=== PATIENT | male | born 1950 | race Caucasian/White ===

== ENCOUNTER 2016-11-26 11:23 | Observation (INO) ==
--- NOTE | 2016-11-26 11:55 | EKG Report ---
Please refer to the EKG image. Final interpretation is pending.
[2016-11-26] MEDS ORDERED: NITROGLYCERIN SL 0.4 MG TABLET SL ONE (12:20)
[2016-11-26] MEDS: NITROGLYCERIN SL 0.4 MG TABLET SL PRN ×2 (12:21→15:44)
[2016-11-26 12:25] LABS: Basophils % 0.6 % (0.0-0.8); Eosinophils # 0.1 10*3/uL (0.0-0.87); Eosinophils % 1.3 % (0.00-10.9); Hematocrit 37.4 VOL% (42.0-52.0); Hemoglobin 11.8 GM/DL (14.0-18.0); Immature Granulocytes % 0.2 %; Immature Granulocytes Absolute 0.01 #; Lymphocytes # 1.1 10*3/uL (1.4-4.0); Lymphocytes % 19.9 % (21.2-54.2); Mean Corpuscular HGB Conc 31.6 GM/DL (32-36); Mean Corpuscular Hemoglobin 27 PG (27-34); Mean Corpuscular Volume 86.2 FL (87-102); Mean Platelet Volume 11.2 FL (9.6-12.0); Monocytes # 0.5 10*3/uL (0.11-0.8); Monocytes % 10.1 % (1.7-12.7); Neutrophils # 3.6 10*3/uL (1.4-7.4); Neutrophils % 67.9 % (38.7-73.9); Platelet Count 142 10*3/uL (130-400); Red Blood Count 4.34 10*6/uL (3.8-5.5); Red Cell Distribution Width 14.6 % (9.3-17.3); White Blood Count 5.3 10*3/uL (4.5-13.71)
--- NOTE | 2016-11-26 12:32 | XRay Report ---
History is chest pain Comparison 07/20/2016 Mediastinal contours unchanged. Clips in the lower neck again seen No congestive failure or confluent infiltrate seen Right diaphragmatic eventration again noted Chronic changes of the shoulders again seen Impression: Stable portable chest PROCEDURE INTERPRETED AT [facility] DEPARTMENT OF RADIOLOGY Final Report Signed by: Dr. Veronique Dueñas
[2016-11-26 12:35] LABS: Partial Thromboplastin Time 37.9 SECS (0-40)
[2016-11-26 12:40] LABS: INR 2.9
[2016-11-26 12:41] LABS: PT Patient Result 33.2 SECS
[2016-11-26 12:58] LABS: Albumin 3.7 G/DL (3.4-5.0); Bilirubin,Total 1.1 MG/DL (0.2-1.0); Osmolality,Calculated 296.7 MOS/KG (273-304); Potassium 4.4 MMOL/L (3.5-5.1); Total Protein 6.3 G/DL (6.4-8.3)
--- NOTE | 2016-11-26 14:53 | Emergency Department Note ---
ISergio Kasabria, am scribing for, and in the presence of, Adriano Espinoza Jr., MD 12:04. Olga Haque Marvin Jr., MD, personally performed the services described in this documentation, ascribed by Omi Hill in my presence, and it is both accurate and complete . Arrival - Arrival Chief Complaint: Chest Pain Stated Complaint: chest pain ED Nursing Triage Note: C/O CHEST PAIN WITH ONSET 1.5 HRS AWNING FINISHER, DENIES SOB/NAUSEA /VOMITING. PT STATES HE TOOK 2 NITROS AWNING FINISHER WITH RELIEF Mode of Arrival: Ambulatory Limitations: No Limitations Source: Patient Time Seen by Provider: 11/26/16 11:51 - History of Present Illness HPI Narrative: This is a 66 y/o white male presenting to the ED with c/o left sided chest tenderness that onset 1.5 hours ago. Pt has had chest pain before and he states his breathing is labored at times. He has 6 stents placed near his heart by Dr. Solis several years ago. He describes his pain at 6/10. He is currently taking Warfran and Plavix. Pt has a PMH of diabetes and HTN. Pt denies fever, chills, nausea, vomiting, diarrhea, abdominal pain, back pain, diaphoresis, and dysuria. Pt took 2 nitros with some relief. Onset (ago): hour(s) (1.5) Consistency: constant Severity: moderate Allergies/Adverse Reactions: Allergies Allergy/AdvReac Type Severity Reaction Status Date / Time pentazocine AdvReac Nausea Verified 07/20/16 10:30 Home Medications: Home Medications Medication Instructions Recorded Confirmed Type Allopurinol 200 mg PO BEDTIME 07/20/16 11/26/16 History Atorvastatin Calcium 20 mg PO QAM 07/20/16 11/26/16 History Bimatoprost 0.01% Oph Soln 1 drop BOTH EYES BEDTIME 07/20/16 11/26/16 History [Lumigan] Clopidogrel [Plavix] 75 mg PO QAM 07/20/16 11/26/16 History Furosemide Tab [Lasix Tab] 120 mg PO QAM 07/20/16 11/26/16 History Furosemide Tab [Lasix Tab] 120 mg PO QAM 07/20/16 11/26/16 History Insulin Lispro [HumaLOG] 7 unit SUBCUT TID W/MEALS 07/20/16 11/26/16 History Isosorbide Dinitrate 20 mg PO BID 07/20/16 11/26/16 History Levothyroxine Tab [Synthroid Tab] 325 mcg PO QAM 07/20/16 11/26/16 History Losartan Potassium [Cozaar] 100 mg PO QAM 07/20/16 11/26/16 History Magnesium Chloride [Mag Delay] 64 mg PO BEDTIME 07/20/16 11/26/16 History Potassium Chloride 20 meq PO BEDTIME 07/20/16 11/26/16 History Pramipexole [Mirapex] 3 mg PO BEDTIME 07/20/16 11/26/16 History Tamsulosin [Flomax] 0.4 mg PO BEDTIME 07/20/16 11/26/16 History Warfarin Sodium 5 mg PO BEDTIME 07/20/16 11/26/16 History Warfarin [Coumadin] 2.5 mg PO KING 07/20/16 11/26/16 History hydroCHLOROthiazide 25 mg PO QAM 07/20/16 11/26/16 History [Hydrochlorothiazide] metOLazone [Metolazone] 20 mg PO QAM 07/20/16 11/26/16 History Calcium (Carb)/Vit D 250-125 2 tablet PO DAILY 11/26/16 11/26/16 History [Oscal 250 + D] Clorazepate [Tranxene] 3.75 mg PO BEDTIME 11/26/16 11/26/16 History Folic Acid/Multivit-Min/Lutein 2 tablet PO DAILY 11/26/16 11/26/16 History [Centrum Silver Chew Tab] Insulin Detemir [Levemir FlexPen] 40 unit SUBCUT BEDTIME 11/26/16 11/26/16 History Levothyroxine Tab [Synthroid Tab] 325 mcg PO QAM 11/26/16 11/26/16 History Melatonin 5 mg PO BEDTIME 11/26/16 11/26/16 History Pantoprazole Tab [Protonix Tab] 40 mg PO QAM 11/26/16 11/26/16 History Review of System - Review of System 12 point system: reviewed and no additional remarkable complaints except as stated - Review of System Constitutional: Absent: chills, fever, weakness Eyes: Absent: vision change Head/Ears/Nose/Throat: Absent: nasal drainage Respiratory: Absent: cough, wheezing Cardiovascular: Present: chest pain (left sided ), dyspnea on exertion Gastrointestinal: Absent: abdominal pain, nausea, vomiting, diarrhea Genitourinary male: Absent: dysuria Musculoskeletal: Absent: arm pain, back pain, lower back pain, leg pain, neck pain Skin: Absent: rash Neurological: Absent: headache, weakness, numbness, confusion, abnormal gait, vertigo Psychiatric: Absent: anxiety Endocrine: Absent: fatigue Hematological/Lymphatic: Absent: easy bleeding Allergic/Immunologic: Absent: facial swelling Medical,Surgical,& Family Hx - Medical History Cardio: History of: Hypertension, [place] (WITH 6 STENTS) Respiratory: History of: Bronchitis Genitourinary: History of: Kidney Stones Musculoskeletal: History of: Back/Neck Problems (l4 l5 fusions, "tailbone surgery") - Surgical History Abdominal Surgeries: Surgical HX of: Cholecystectomy, Gastric Bypass Surgery, EGD - Family History Family History: Reports;: Family Cancer, Family Diabetes, Family Heart Disease, Family Hypertension, Family Stroke - Social History Smoking Status: Former smoker Frequency of Alcohol Use: None Type of Drug Use: None Exam Physical Examination: General: Well-developed well-nourished, no apparent distress. Head: Normocephalic, atraumatic. Eyes: PERRLA, EOMI. Nose: No obvious acute deformities or discharge. Mouth: No obvious acute injury. Neck: Full range of motion without obvious pain. No midline tender to palpation. Lymphatic: no significant lymphadenopathy noted. Lungs: Clear to auscultation bilaterally, normal and equal air movement bilaterally, no obvious rales or wheezing. Heart: regular rate and rhythm, no obvious mummers. Abdomen: Mild tenderness to palpation over the recent surgery site. This seems appropriate and not excessive. Normal active bowel sounds. Skin: No obivous acute lesions noted Musculoskeletal: No gross deformities. Neurological: No focal findings, cranial nerves II through XII grossly normal. Psychiatric: Appropriate mood.. : Deferred Vital Signs: Vital Signs Temperature 98.8 F 11/26/16 11:27 Pulse Rate 66 11/26/16 13:10 Respiratory Rate 16 11/26/16 13:10 Blood Pressure 128/55 11/26/16 13:10 O2 Sat by Pulse Oximetry 100 11/26/16 13:10 Course Course Narrative: Differential diagnosis, ME, just of heart failure, PE - Reevaluation(s) Reevaluation #1: Discussed with Dr. Cazares who accepts this admission for Dr. Solis. Since the patient is on Plavix and Coumadin he says do not had aspirin or Lovenox to the regime. Time: 14:48 Reevaluation #2: Patient also says he has had a lap band that was removed and he had some sort of sleeve surgery last month, this may be part of the issue also the patient still merits admission for further workup. Time: 14:51 Results - Labs CBC & BMP: 11/26/16 12:01 11/26/16 12:01 Lab Results: I have reviewed the patients labs Labs: Laboratory Tests 11/26/16 11/26/16 11/26/16 12:01 12:01 12:01 WBC 5.3 RBC 4.34 Hgb 11.8 L Hct 37.4 L MCV 86.2 L MCH 27 MCHC 31.6 L RDW 14.6 Plt Count 142 MPV 11.2 Neut % (Auto) 67.9 Lymph % (Auto) 19.9 L [place] % (Auto) 10.1 Eos % (Auto) 1.3 Baso % (Auto) 0.6 Neut # (Auto) 3.6 Lymph # (Auto) 1.1 L [place] # (Auto) 0.5 Eos # (Auto) 0.1 Baso # (Auto) 0.0 Immature Gran % 0.2 Nucleated RBC % 0.0 Immature Gran # 0.01 Nucleated RBCs # 0.00 INR 2.9 PT Patient/Control Mix 33.2 D D-Dimer, Quantitative Circ Anticoag PTT 37.9 Sodium 145 Potassium 4.4 Chloride 107 Carbon Dioxide 28 Anion Gap 14.4 BUN 21 H Creatinine 1.20 GFR Calculation 92 BUN/Creatinine Ratio 17.00 Glucose 214 H Calculated Osmolality 296.7 Calcium 9.0 Total Bilirubin 1.10 H AST 20 ALT 23 Alkaline Phosphatase 88 Total Protein 6.3 L Albumin 3.7 Globulin 2.6 Albumin/Globulin Ratio 1.4 11/26/16 12:01 WBC RBC Hgb Hct MCV MCH MCHC RDW Plt Count MPV Neut % (Auto) Lymph % (Auto) [place] % (Auto) Eos % (Auto) Baso % (Auto) Neut # (Auto) Lymph # (Auto) [place] # (Auto) Eos # (Auto) Baso # (Auto) Immature Gran % Nucleated RBC % Immature Gran # Nucleated RBCs # INR PT Patient/Control Mix D-Dimer, Quantitative <= 0.5 Circ Anticoag PTT Sodium Potassium Chloride Carbon Dioxide Anion Gap BUN Creatinine GFR Calculation BUN/Creatinine Ratio Glucose Calculated Osmolality Calcium Total Bilirubin AST ALT Alkaline Phosphatase Total Protein Albumin Globulin Albumin/Globulin Ratio - EKG EKG results: interpreted by ERMD (C EKG, heart rate 77, normal sinus rhythm, no obvious acute ST changes. Interpretation nonspecific EKG without obvious acute changes) - Diagnostic Findings Procedure: Chest x-ray: report reviewed by me (stable portable chest , I personally reviewed this chest x-ray and agree.) Disposition Clinical Impression: Chest pain, Diabetes mellitus, Hypertension, Coronary artery disease, recent lap band removal with sleeve surg Case discussed with: patient, patient's family Disposition: Still a Patient Condition: Stable Time of Disposition: 14:49
[2016-11-26] MEDS ORDERED: MAGNESIUM SULF RIDER 4 GM in PREMIX 1 EACH IV PRN (16:10)
[2016-11-26] MEDS ORDERED: GLUCAGON 1 MG VIAL IM PRN (16:10)
[2016-11-26] MEDS ORDERED: MAGNESIUM SULF RIDER 2 GM in PREMIX 1 EACH IV PRN (16:10)
[2016-11-26] MEDS ORDERED: DEXTROSE 50% 25 GM/50 ML VIAL IV PRN (16:10)
[2016-11-26] MEDS: INSULIN REGULAR 100 UNIT/ML SUBCUT SCH ×2 (17:57→21:01)
[2016-11-26] MEDS ORDERED: WARFARIN 5 MG TABLET PO SCH (21:00)
[2016-11-26] MEDS: NITROGLYCERIN 2% OINT 1 INCH/GM PACK TOP SCH (21:07)
[2016-11-27] MEDS ORDERED: CLOPIDOGREL 75 MG TABLET PO SCH (09:00)
[2016-11-27] MEDS: INSULIN REGULAR 100 UNIT/ML SUBCUT SCH ×2 (10:00→13:30)
[2016-11-27] MEDS: NITROGLYCERIN 2% OINT 1 INCH/GM PACK TOP SCH (10:00)
--- NOTE | 2016-11-27 10:47 | Cardiology History & Physical ---
Assessment and Plan (1) Chest pain Status: Acute Assessment and plan: The patient had some chest pain symptoms, but has no EKG changes, has normal cardiac enzymes, and had cardiac catheterization for the same symptoms as a few months ago. He did not have any interventional disease at that time. At this point, it is unclear whether the symptoms actually represent anything cardiac. Certainly, with his recent lap band, this could be GI in origin. Nevertheless, with negative cardiac enzymes, no EKG changes, and a recent cardiac catheterization showing no interventional disease, I think we can continue to manage him medically. He is clinically stable and wants to go home today which I think is reasonable. I will get him set up for a follow-up with Dr. Solis to see if he has any other recommendations on further workup and management. Current Visit: Yes (2) Coronary artery disease Status: Acute Current Visit: Yes (3) Diabetes mellitus Status: Acute Current Visit: Yes (4) Hypertension Status: Acute Current Visit: Yes (5) Warfarin anticoagulation Status: Chronic Current Visit: No History of Present Illness History of present illness: Mr. Scott is a 66 year old male with a history of coronary artery disease, hypertension, hyperlipidemia, diabetes, hypothyroidism, and obesity. He is normally followed by Dr. Solis. He came in to the hospital after having some chest pain symptoms. This was on the left side of his chest. It was moderate in severity. The symptoms lasted for about an hour to an hour and a half. They improved after getting sublingual nitroglycerin and eventually resolved altogether. There were no specific exacerbating or relieving factors. There were no associated symptoms such as diaphoresis nausea, or vomiting. There is no radiation of the symptoms. He felt mildly short of breath. Symptoms were not pleuritic. He has not had any fever, chills, or cough on the day of admission, although his says that he was "a little congested a few days ago and was treated by his family physician for this with a steroid shot". Since admission to the hospital he's had no further chest pain symptoms. His EKG has not shown any acute changes. His cardiac enzymes have been negative 3 sets. He denies any palpitations, syncope, orthopnea, or PND. At the time I was seeing him he was feeling completely back to normal. Of note, Dr. Solis admitted the patient in July 2016 for similar symptoms. He performed cardiac catheterization at that time which did not reveal any sort of interventional disease. He does have some small vessel/diffuse disease in the PDA distribution, but nothing that was very amenable to percutaneous revascularization. His left ventricular ejection fraction at that time was also normal, estimated at 55-60%. Also of note, the patient had removal of a lap band and placement of a gastric sleeve in October for management of his weight. He had no problems or complications from that procedure. Home Medications Medication Instructions Recorded Confirmed Type Allopurinol 200 mg PO BEDTIME 07/20/16 11/26/16 History Atorvastatin Calcium 20 mg PO QAM 07/20/16 11/26/16 History Bimatoprost 0.01% Oph Soln 1 drop BOTH EYES BEDTIME 07/20/16 11/26/16 History [Lumigan] Clopidogrel [Plavix] 75 mg PO QAM 07/20/16 11/26/16 History Furosemide Tab [Lasix Tab] 80 mg PO TUWETH 07/20/16 11/26/16 History Insulin Lispro [HumaLOG] 7 unit SUBCUT TID W/MEALS 07/20/16 11/26/16 History Isosorbide Dinitrate 20 mg PO BID 07/20/16 11/26/16 History Levothyroxine Tab [Synthroid Tab] 125 mcg PO QAM 07/20/16 11/26/16 History Losartan Potassium [Cozaar] 100 mg PO QAM 07/20/16 11/26/16 History Magnesium Chloride [Mag Delay] 64 mg PO BEDTIME 07/20/16 11/26/16 History Potassium Chloride 20 meq PO BEDTIME 07/20/16 11/26/16 History Pramipexole [Mirapex] 3 mg PO BEDTIME 07/20/16 11/26/16 History Tamsulosin [Flomax] 0.4 mg PO BEDTIME 07/20/16 11/26/16 History Warfarin Sodium 5 mg PO MOTUWETHFRSA@1800 07/20/16 11/26/16 History Warfarin [Coumadin] 2.5 mg PO KING 07/20/16 11/26/16 History hydroCHLOROthiazide 25 mg PO QAM 07/20/16 11/26/16 History [Hydrochlorothiazide] metOLazone [Metolazone] 20 mg PO QAM 07/20/16 11/26/16 History Calcium (Carb)/Vit D 250-125 2 tablet PO DAILY 11/26/16 11/26/16 History [Oscal 250 + D] Clorazepate [Tranxene] 3.75 mg PO BEDTIME 11/26/16 11/26/16 History Folic Acid/Multivit-Min/Lutein 2 tablet PO DAILY 11/26/16 11/26/16 History [Centrum Silver Chew Tab] Levothyroxine Tab [Synthroid Tab] 200 mcg PO QAM 11/26/16 11/26/16 History Melatonin 5 mg PO BEDTIME 11/26/16 11/26/16 History Pantoprazole Tab [Protonix Tab] 40 mg PO QAM 11/26/16 11/26/16 History Warfarin [Coumadin] 2.5 mg PO KING@1800 11/26/16 11/26/16 History Allergies Allergy/AdvReac Type Severity Reaction Status Date / Time pentazocine AdvReac Nausea Verified 07/20/16 10:30 12 point system: reviewed and no additional remarkable complaints except as stated Medical,Surgical,& Family Hx - Medical History Cardio: History of: Cardiac Dysrhythmia (afib), CHF, CAD, Hypertension, [place] ( WITH 6 STENTS), PVD Endocrine: History of: Diabetes Mellitus (IDDM), Dyslipidemia, Thyroid Disorder (thyroid ca) Rheumatology: History of;: Gout Respiratory: History of: Bronchitis, Intubation, Obstructive Sleep Apnea (wears cpap) Genitourinary: History of: Bladder Problem, Kidney Stones, Prostate Problems ( bph) Musculoskeletal: History of: Back/Neck Problems (l4 l5 fusions, "tailbone surgery") Hematology: History of: Anemia Other: History of: Cancer (thyroid) - Surgical History Cardiac Surgeries: Sugical HX of: Cardiac Catheterization Thoracic Surgeries: Surgical HX of;: Lithotripsy HEENT Surgeries: Surgical HX of: Thyroid Surgery (b neck thyroid removed) Abdominal Surgeries: Surgical HX of: Appendectomy, Cholecystectomy, Gastric Bypass Surgery (lap band removed 10/28 sleeve done), EGD Orthopedic Surgeries: Surgical HX of;: Orthopedic Surgery, Total Knee Replacement (bilat) - Family History Family History: Reports;: Family Cancer, Family Diabetes, Family Heart Disease, Family Hypertension, Family Stroke - Social History Smoking Status: Former smoker Frequency of Alcohol Use: None Type of Drug Use: None Cardiology Physical Exam - Constitutional Vitals: Vital Signs Temp Pulse Resp BP Pulse Ox 98.4 F 63 20 147/77 98 11/27/16 08:00 11/27/16 08:00 11/27/16 08:00 11/27/16 08:00 11/27/16 08:00 Intake and Output 11/26/16 11/27/16 11/27/16 23:59 07:59 15:59 Intake Total 120 / 120 Output Total 300 / 300 400 / 400 Balance -300 / -300 -280 / -280 Intake: Intake - Additional IV 120 / 120 Volume (mLs) Output: Urine 300 / 300 400 / 400 Other: Voiding Method Urinal Urinal # Bowel Movements 1 Weight 135.488 kg 135.624 kg Patient Weight 11/27/16 23:59 Weight 135.624 kg Exam: General: Appears well developed, obese, well nourished, no apparent distress HEENT: Normocephalic, atraumatic Neck: Supple Neck, Midline Trachea, No Bruit, No JVD Cardiac: Reg Rate and Rhythm, No Murmur, no gallop, no rub Lungs: Clear to auscultation, No Wheeze, Rales, Rhonchi Neuro: Cranial Nerve 2-12 Intact, Motor Function Grossly Intact Abdomen: Soft, Active Bowel Sounds, No Masses, No Pulsations/Bruits Skin: Normal color, no rash Extremities: No Clubbing, No Cyanosis, No Edema, Normal Upper Extr. Pulses Musculoskeletal: No acute abnormality noted Psychiatric: The patient does not appear to be anxious or depressed Result/EKG - Labs CBC & BMP: 11/26/16 12:01 11/26/16 12:01 Lab Results: I have reviewed the past 24 hour labs Labs: Laboratory Results - last 24 hr 11/26/16 11/26/16 11/26/16 16:30 16:39 19:43 POC Glucose 183 H Troponin I < 0.015 < 0.015 11/26/16 11/26/16 11/27/16 20:58 22:18 09:04 POC Glucose 247 H 222 H Troponin I < 0.015 - EKG EKG results: interpreted by me
--- NOTE | 2016-11-27 10:52 | Discharge Summary ---
Hospital Course - Hospital Course Hospital Course: The patient is a 66-year-old male with numerous medical problems including hypertension, diabetes, hyperlipidemia, coronary artery disease, hypothyroidism , and obesity. He came in to the hospital with some chest pain symptoms but had no EKG changes and normal cardiac enzymes 3 sets. Please see the H&P for details. He had similar symptoms about 3-4 months ago and underwent cardiac catheterization with Dr. Solis. This demonstrated some small vessel/diffuse disease that was not amenable to coronary artery intervention. He had preserved left ventricular systolic function. Once the patient was admitted, he had no further chest pain symptoms. He did not have any EKG changes or arrhythmias. His examination was benign. At this point he is wanting to go home and I think that is reasonable. It is unclear if the symptoms represented some sort of anginal symptoms or they may be GI related. Of note, he underwent a gastric sleeve placement in October which could be a factor. He is not having any dysphagia, nausea, or vomiting. I think it is safe to discharge him home. I would not give him a follow-up with Dr. Solis in a week or 2 to see if he has any additional recommendations on workup and management. Diagnosis - Discharge Diagnosis (1) Chest pain Status: Acute (2) Coronary artery disease Status: Acute (3) Diabetes mellitus Status: Acute (4) Hypertension Status: Acute (5) Warfarin anticoagulation Status: Chronic Discharge Plan - Discharge Data Disposition: Disch To Home/Self Care - Discharge Medications Continue Levothyroxine Tab [Synthroid Tab] 125 mcg PO QAM Bimatoprost 0.01% Oph Soln [Lumigan] 1 drop BOTH EYES BEDTIME Atorvastatin Calcium 20 mg PO QAM Pramipexole [Mirapex] 3 mg PO BEDTIME Tamsulosin [Flomax] 0.4 mg PO BEDTIME Warfarin Sodium 5 mg PO MOTUWETHFRSA@1800 Allopurinol 200 mg PO BEDTIME metOLazone [Metolazone] 20 mg PO QAM Potassium Chloride 20 meq PO BEDTIME Furosemide Tab [Lasix Tab] 80 mg PO TUWETH hydroCHLOROthiazide [Hydrochlorothiazide] 25 mg PO QAM Losartan Potassium [Cozaar] 100 mg PO QAM Magnesium Chloride [Mag Delay] 64 mg PO BEDTIME Isosorbide Dinitrate 20 mg PO BID Clopidogrel [Plavix] 75 mg PO QAM Warfarin [Coumadin] 2.5 mg PO KING Insulin Lispro [HumaLOG] 7 unit SUBCUT TID W/MEALS Melatonin 5 mg PO BEDTIME Clorazepate [Tranxene] 3.75 mg PO BEDTIME Pantoprazole Tab [Protonix Tab] 40 mg PO QAM Levothyroxine Tab [Synthroid Tab] 200 mcg PO QAM Folic Acid/Multivit-Min/Lutein [Centrum Silver Chew Tab] 2 tablet PO DAILY Calcium (Carb)/Vit D 250-125 [Oscal 250 + D] 2 tablet PO DAILY Warfarin [Coumadin] 2.5 mg PO KING@1800 - Follow Up or Referral Follow Up: Luis Solis MD [Physician] - (2 weeks with CBC, CMP, PT/INR, TSH, magnesium, and EKG) - Forms/Instructions Exam - Constitutional Vitals: Period Temp Pulse Resp BP Sys/Gomez Pulse Ox Last 24 Hr 98.1 F-98.7 F 56-64 14-20 124-147/60-77 98-100 Discharge Results Labs on day of discharge: Labs from last 24 hours 11/27/16 11/26/16 11/26/16 09:04 22:18 20:58 POC Glucose 222 H 247 H Troponin I < 0.015 11/26/16 11/26/16 11/26/16 19:43 16:39 16:30 POC Glucose 183 H Troponin I < 0.015 < 0.015 DS: Provider Date of admission: 11/26/16 14:53 Primary care physician: . No PCP Attending physician on admission: Nicole Kwok Consults: 11/26/16 16:12 Consult to Pharmacy [CONS] Routine Reason for Pharmacy Consult: Adjust Meds Renal Funct Discharging clinician: Jonatan Cazares MD
[2016-11-27 12:29] VITALS: BP 180/80
== END 2016-11-27 14:20 | disposition home or self-care (01) ==
LOC: N.ED 11:23 → N.EDINP 11:23 → N.TELEN 15:58
PROVIDERS: ADMIT Internal Medicine Cardiovascular Disease; ATTEND Internal Medicine Cardiovascular Disease

== ENCOUNTER 2022-01-06 15:15 | Observation (INO) ==
[2022-01-06 16:18] LABS: Basophils % 0.5 % (0.0-0.8); Eosinophils # 0.1 10*3/uL (0.0-0.87); Eosinophils % 1.6 % (0.00-10.9); Hematocrit 37.8 VOL% (42.0-52.0); Immature Granulocytes % 0.5 %; Immature Granulocytes Absolute 0.04 #; Lymphocytes # 1.9 10*3/uL (1.4-4.0); Lymphocytes % 25.7 % (21.2-54.2); Mean Corpuscular HGB Conc 31.7 GM/DL (32-36); Mean Corpuscular Volume 88.9 FL (87-102); Mean Platelet Volume 11.2 FL (9.6-12.0); Monocytes % 6.5 % (1.7-12.7); Neutrophils % 65.2 % (38.7-73.9); Platelet Count 211 T/CUMM (130-400); Red Blood Count 4.25 MC/CUMM (3.8-5.5); White Blood Count 7.5 T/CUMM (4-12)
[2022-01-06 16:37] LABS: INR 1.8; PT Patient Result 19.3 SECS (10.5-12.0)
[2022-01-06 16:46] LABS: Bilirubin,Total 0.4 MG/DL (0.20-1.00); Calcium 8.8 MG/DL (8.5-10.1); Osmolality,Calculated 290.3 MOS/KG (273-304); Potassium 3.9 MMOL/L (3.5-5.1); Total Protein 7.3 G/DL (6.4-8.2)
[2022-01-06] MEDS ORDERED: NITROGLYCERIN SL 0.4 MG TABLET SL PRN (17:52)
[2022-01-06] MEDS ORDERED: LACTULOSE 20 GM/30 ML UDCUP PO PRN (17:53)
[2022-01-06] MEDS ORDERED: hydrALAZINE 20 MG/1 ML VIAL IV PRN (17:53)
[2022-01-06] MEDS ORDERED: GLUCAGON 1 MG VIAL IM PRN (17:53)
[2022-01-06] MEDS ORDERED: ONDANSETRON 4 MG/2 ML VIAL IV PRN (17:53)
[2022-01-06] MEDS ORDERED: ACETAMINOPHEN 325 MG TABLET PO PRN (17:53)
[2022-01-06] MEDS ORDERED: ALBUTEROL 2.5 MG/3 ML NEB RESP TX PRN (17:53)
[2022-01-06] MEDS ORDERED: MAGNESIUM SULF RIDER 4 GM/100 ML PREMIX IV PRN (17:58)
[2022-01-06] MEDS ORDERED: MAGNESIUM SULF RIDER 2 GM/50 ML PREMIX IV PRN (17:58)
[2022-01-06] MEDS ORDERED: DEXTROSE 10% 250 ML BAG IV PRN (18:01)
[2022-01-06] MEDS ORDERED: ASPIRIN 325 MG TABLET PO STA (18:21)
[2022-01-06] MEDS ORDERED: LACTATED RINGERS 1,000 ML IV SCH (18:30)
[2022-01-06 19:18] LABS: Bacteria,Urine Occasional /HPF (Few); Calcium Oxalate Crystals,Urine Many /HPF (Few); Hyaline Casts,Urine 4 /LPF (0-3); Mucus,Urine Occasional /LPF (Occasional); RBC,Urine 14 /HPF (0-4); Squamous Epithelial Cell,Urine Occasional /HPF (0-10)
[2022-01-06 19:49] LABS: Urine Appearance Slightly Cloudy (Clear); Urine Color Yellow (Yellow)
[2022-01-06 19:50] LABS: Protein,Urine Negative; Urine Urobilinogen 0.2 EU/DL (<2.0)
[2022-01-06 19:51] LABS: Bilirubin,Urine Negative (Negative); Glucose,Urine (UA) Negative (Negative); Ketones,Urine Negative (Negative)
[2022-01-06 19:52] LABS: Blood, Urine Moderate mg/dL (Negative); Nitrite,Urine Negative (Negative)
[2022-01-06] MEDS: DOCUSATE SODIUM 100 MG CAPSULE PO SCH (21:30)
[2022-01-06] MEDS: POTASSIUM CHLORIDE 10 MEQ TABLET PO SCH (21:30)
[2022-01-06] MEDS: TRIMETHOPRIM 100 MG TABLET PO SCH (21:31)
[2022-01-06] MEDS: INSULIN LISPRO 100 UNIT/ML SUBCUT SCH (21:31)
[2022-01-07 05:10] LABS: Basophils # 0.1 10*3/uL (0.0-0.2); Basophils % 0.9 % (0.0-0.8); Eosinophils # 0.1 10*3/uL (0.0-0.87); Eosinophils % 1.9 % (0.00-10.9); Hematocrit 32.8 VOL% (42.0-52.0); Hemoglobin 10.4 GM/DL (14.0-18.0); Immature Granulocytes % 0.3 %; Immature Granulocytes Absolute 0.02 #; Lymphocytes # 1.9 10*3/uL (1.4-4.0); Lymphocytes % 32.6 % (21.2-54.2); Mean Corpuscular HGB Conc 31.7 GM/DL (32-36); Mean Corpuscular Volume 90.4 FL (87-102); Mean Platelet Volume 10.7 FL (9.6-12.0); Monocytes % 8.7 % (1.7-12.7); Neutrophils % 55.6 % (38.7-73.9); Platelet Count 159 T/CUMM (130-400); Red Blood Count 3.63 MC/CUMM (3.8-5.5); Red Cell Distribution Width 13.8 % (9.3-17.3); White Blood Count 5.8 T/CUMM (4-12)
[2022-01-07 05:33] LABS: Calcium 8.9 MG/DL (8.5-10.1); Osmolality,Calculated 288.4 MOS/KG (273-304); Potassium 4.5 MMOL/L (3.5-5.1); Risk Ratio 2.03; Thyroid Stimulating Hormone 0.047 uIU/ml (0.358-3.74); VLDL Cholesterol 17.6 MG/DL
[2022-01-07] MEDS: LEVOTHYROXINE 125 MCG TABLET PO SCH (05:40)
[2022-01-07 08:30] LABS: INR 1.7; PT Patient Result 18.3 SECS (10.5-12.0)
[2022-01-07] MEDS: ASPIRIN CHEW 81 MG TABLET PO SCH ×2 (09:22→12:13)
[2022-01-07] MEDS: PANTOPRAZOLE 40 MG TABLET PO SCH ×2 (09:23→12:14)
[2022-01-07] MEDS: ATORVASTATIN 20 MG TABLET PO SCH ×2 (09:23→12:14)
[2022-01-07] MEDS: DOCUSATE SODIUM 100 MG CAPSULE PO SCH ×3 (09:23→20:47)
[2022-01-07] MEDS: FERROUS SULFATE 325 MG TABLET PO SCH ×2 (09:25→12:14)
[2022-01-07] MEDS: INSULIN LISPRO 100 UNIT/ML SUBCUT SCH ×5 (09:32→20:47)
[2022-01-07] MEDS ORDERED: REGADENOSON 0.4 MG/5 ML SYRINGE IV ONE (09:39)
[2022-01-07] MEDS: POTASSIUM CHLORIDE 10 MEQ TABLET PO SCH (20:47)
[2022-01-07] MEDS: TRIMETHOPRIM 100 MG TABLET PO SCH (20:47)
[2022-01-08] MEDS: LEVOTHYROXINE 125 MCG TABLET PO SCH (06:07)
[2022-01-08 06:47] LABS: Basophils % 0.6 % (0.0-0.8); Eosinophils # 0.1 10*3/uL (0.0-0.87); Eosinophils % 1.7 % (0.00-10.9); Hematocrit 33.5 VOL% (42.0-52.0); Hemoglobin 10.5 GM/DL (14.0-18.0); Immature Granulocytes % 0.4 %; Immature Granulocytes Absolute 0.03 #; Lymphocytes # 1.6 10*3/uL (1.4-4.0); Lymphocytes % 22.7 % (21.2-54.2); Mean Corpuscular HGB Conc 31.3 GM/DL (32-36); Mean Corpuscular Volume 90.1 FL (87-102); Mean Platelet Volume 10.9 FL (9.6-12.0); Monocytes % 8.8 % (1.7-12.7); Neutrophils % 65.8 % (38.7-73.9); Platelet Count 176 T/CUMM (130-400); Red Blood Count 3.72 MC/CUMM (3.8-5.5); Red Cell Distribution Width 13.9 % (9.3-17.3); White Blood Count 7.2 T/CUMM (4-12)
[2022-01-08 06:55] LABS: INR 1.6; PT Patient Result 17.2 SECS (10.5-12.0)
[2022-01-08 07:08] LABS: Calcium 8.7 MG/DL (8.5-10.1); Osmolality,Calculated 289.3 MOS/KG (273-304); Potassium 4.2 MMOL/L (3.5-5.1)
[2022-01-08] MEDS: INSULIN LISPRO 100 UNIT/ML SUBCUT SCH ×2 (09:37→12:45)
[2022-01-08] MEDS: ASPIRIN CHEW 81 MG TABLET PO SCH (10:35)
[2022-01-08] MEDS: FERROUS SULFATE 325 MG TABLET PO SCH (10:35)
[2022-01-08] MEDS: DOCUSATE SODIUM 100 MG CAPSULE PO SCH (10:35)
[2022-01-08] MEDS: ATORVASTATIN 20 MG TABLET PO SCH (10:36)
[2022-01-08] MEDS: PANTOPRAZOLE 40 MG TABLET PO SCH (10:36)
[2022-01-08] MEDS ORDERED: WARFARIN 1 MG TABLET PO ONE (14:55)
[2022-01-08] MEDS ORDERED: WARFARIN 2 MG TABLET PO ONE (16:00)
[2022-01-08 16:30] VITALS: BP 133/61
[2022-01-08] MEDS ORDERED: WARFARIN 2.5 MG TABLET PO SCH (18:00)
[2022-01-09] MEDS ORDERED: METOPROLOL SUCCINATE XL 25 MG TABLET PO SCH (09:00)
[2022-01-09] MEDS ORDERED: WARFARIN 2.5 MG TABLET PO SCH (18:00)
== END 2022-01-08 17:00 | disposition home or self-care (01) ==
LOC: N.ED 15:15 → INTOOBSV 17:52 → SUATTDRO 17:52 → OBSVTOIN 17:52 → N.EDINP 17:52 → N.TELES 01-07 01:49
PROVIDERS: ADMIT Internal Medicine; ATTEND Internal Medicine